=== PATIENT | female | born 1980 | race Caucasian/White ===

== ENCOUNTER 2017-11-02 10:24 | Emergency (ER) | payer OTHER ==
[2017-11-02] MEDS ORDERED: DIPHTH,PERTUSS(ACELL),TET 0.5 ML DISP.SYRIN IM ONE (10:34)
[2017-11-02 10:38] VITALS: TEMP 98.2; BMI 36.3
--- NOTE | 2017-11-02 10:40 | PDOC ---
History of Present Illness - History of Present Illness Initial Comments: 36 year old female with PMH of anemia (q 6 weekly iron infusions) presenting s/ p trauma to left dorsal foot. She opened a cabinet that had a drill in it and fell out of the cabinet striking the top of her 4th left toe. She is unsure if the drill bit portion struck her toe but states that she was struck by the "whole drill". She noticed a cut with bleeding on the top of her foot but was able to move her foot and didn't lose function or sensation. She went to urgent care and they insisted that she come to the ED because of concern regarding the depth of the cut. No material or foreign body in the wound as far as she knows. LMP was three weeks prior. Not on blood thinners or aspirin. Her last tetanus is unknown but she was told she was "up-to-date" at her last physical one year prior. She was ambulatory after the trauma and ambulatory in our ED. Denies any fevers, chills, nausea, vomiting, diarrhea, constipation, or other symptoms. 11/02/17 10:32 <Clem Hoover - Last Filed: 11/02/17 12:01> <Linda Delgado - Last Filed: 11/02/17 21:47> - General Chief Complaint: Injury Stated Complaint: LEFT FOOT INJURY Time Seen by Provider: 11/02/17 10:31 Past History - Past Medical History Anemia: Yes - Suicide/Smoking/Psychosocial Hx Smoking Status: No Smoking History: Never smoked Number of Cigarettes Smoked Daily: 0 <Clem Hoover - Last Filed: 11/02/17 12:01> <Linda Delgado - Last Filed: 11/02/17 21:47> - Past Medical History Allergies/Adverse Reactions: Allergies Allergy/AdvReac Type Severity Reaction Status Date / Time No Known Drug Allergies Allergy Verified 11/02/17 10:27 dust, pollen Allergy Uncoded 11/02/17 11:12 Home Medications: Ambulatory Orders Fexofenadine/Pseudoephedrine [Cici-D 24 Hour Tablet] 1 each PO DAILY Iron Injection WEEKLY 11/02/17 Sulfamethoxazole/Trimethoprim [Bactrim Ds -] 1 tab PO BID 5 Days #10 tablet Review of Systems - Review of Systems Constitutional: No: Chills, Fever HEENTM: No: Blurred Vision Respiratory: No: Cough, Shortness of Breath, Wheezing Cardiac (ROS): No: Chest Pain, Irregular Heart Rate, Chest Tightness ABD/GI: No: Diarrhea, Nausea, Vomiting : No: Burning, Dysuria, Discharge Musculoskeletal: No: Back Pain, Joint Pain, Muscle Weakness Integumentary: No: Bruising, Erythema, Lesions Neurological: No: Numbness, Paresthesia, Weakness <Clem Hoover - Last Filed: 11/02/17 12:01> *Physical Exam - Physical Exam General Appearance: Yes: Nourished, Appropriately Dressed. No: Apparent Distress HEENT: positive: EOMI, MARINA, Normal ENT Inspection, Normal Voice Neck: positive: Trachea midline, Normal Thyroid, Supple. negative: Tender, Rigid Respiratory/Chest: positive: Lungs Clear, Normal Breath Sounds. negative: Chest Tender, Respiratory Distress, Accessory Muscle Use Cardiovascular: positive: Regular Rhythm, Regular Rate Gastrointestinal/Abdominal: positive: Normal Bowel Sounds, Flat, Soft. negative : Tender Musculoskeletal: positive: Other (No obvious defomrity to LLE but there is skin breakage over the dorsal aspect of the 4th metatarsal-tarsal joint). negative: Normal Inspection, Decreased Range of Motion Extremity: positive: Normal Range of Motion, Tender (4th dorsal tarsal- metatarsal tenderenss tp palpation with deep 2.6 cm wound extending into the deep tissue without obvious bone extrudign through. Area distal to the wound is neurovascularly intact and she has full motor strength). negative: Normal Inspection Integumentary: positive: Normal Color, Dry, Warm Neurologic: positive: Fully Oriented, Alert, Normal Mood/Affect, Normal Response , Motor Strength 5/5 <Clem Hoover - Last Filed: 11/02/17 12:01> - Vital Signs Last Vital Signs Temp Pulse Resp BP Pulse Ox 98.2 F 89 16 135/94 99 11/02/17 10:25 11/02/17 11:30 11/02/17 11:30 11/02/17 11:30 11/02/17 11:30 <Linda Delgado - Last Filed: 11/02/17 21:47> Procedures - Laceration/Wound Repair Left Proximal Dorsal Toe 4th digit Wound Explored: clean Wound's Depth, Shape: superficial Irrigated w/ Saline: Yes Betadine Prep: No Anesthesia: 1% Lidocaine Amount of Anesthetic (ccs): 4 Wound Debrided: minimal Wound Repaired With: Sutures Suture Size/Type: 4:0, nylon Number of Sutures: 3 Layer Closure: No Sterile Dressing Applied: Yes Splint Applied: Yes (Walking boot) <Clem Hoover - Last Filed: 11/02/17 12:01> - Laceration/Wound Repair Left Proximal Dorsal Toe 4th digit Wound Length: to 2.5 cm <Linda Delgado S - Last Filed: 11/02/17 21:47> ED Treatment Course - ADDITIONAL ORDERS Additional order review: Laboratory Results 11/02/17 10:40 Urine HCG, Qual Negative - Medications Given in the ED: ED Medications Discontinued Medications Generic Name Dose Route Start Last Admin Trade Name Freq PRN Reason Stop Dose Admin Acetaminophen 1,000 mg 11/02/17 10:45 11/02/17 10:47 Tylenol - PO 11/02/17 10:46 1,000 mg ONCE ONE Administration Diphtheria/Tetanus/Acell Pertussis 0.5 ml 11/02/17 10:34 11/02/17 10:59 Boostrix - IM 11/02/17 10:35 0.5 ml .ONCE ONE Administration Trimethoprim/Sulfamethoxazole 1 each 11/02/17 12:07 11/02/17 12:15 Bactrim Ds - PO 11/02/17 12:08 1 each ONCE ONE Administration <Linda Delgado S - Last Filed: 11/02/17 21:47> Medical Decision Making - Medical Decision Making No fractures on toe films. Sutured with good hemostasis, pain control, and neurovascularly intact with good ROM before and after the procedure. Given tetanus booster, Bactrim (because of area of wound), post op shoe to prevent flexion and suture tension, and sent home with prescription for Bactrim and wound check return 4-5 days with suture removal in two weeks. 11/02/17 12:02 <Clem Hoover - Last Filed: 11/02/17 12:01> *DC/Admit/Observation/Transfer - Discharge Dispostion Admit: No <Clem Hoover - Last Filed: 11/02/17 12:01> <Linda Delgado S - Last Filed: 11/02/17 21:47> Diagnosis at time of Disposition: Laceration of toe of left foot Qualifiers: Encounter type: initial encounter Toe: lesser toe Damage to nail status: without damage Foreign body presence: without foreign body Qualified Code(s): S91.115A - Laceration without foreign body of left lesser toe(s) without damage to nail, initial encounter - Discharge Dispostion Disposition: HOME Condition at time of disposition: Improved - Prescriptions Prescriptions: Sulfamethoxazole/Trimethoprim [Bactrim Ds -] 1 tab PO BID 5 Days #10 tablet - Referrals Referrals: [facility] [Provider Group] - Patient Instructions Printed Discharge Instructions: DI for Suture Removal Additional Instructions: Do not wash the area for the first 24 hours then you can use warm soap and water after that. Please do not soak your wound or expose it to water for extended periods of time. Please wear sandals in the shower to elevate it off of the surface of the shower to keep it clean. Please wear the walking boot for the next week or so until it completely heals. Please return to the ED in 4-5 days for a wound check. The sutures can be removed after 14 days. Please return to the ED sooner if you have fevers, swelling of that tow, redness of the toe, loss of sensation or function of the toe, or if you notice fluid draining from the toe.
[2017-11-02] MEDS ORDERED: ACETAMINOPHEN 500 MG TABLET (FP) ONE (10:45)
[2017-11-02] MEDS ORDERED: ACETAMINOPHEN 500 MG TABLET (FP) PO ONE (10:45)
[2017-11-02 11:31] VITALS: BP 135/94; PULSE 89
[2017-11-02] MEDS ORDERED: SULFAMETHOXAZOLE/TRIMETHOPRIM 800MG/160MG D.S. TABLET PO ONE (12:07)
[2017-11-02] MEDS ORDERED: SULFAMETHOXAZOLE/TRIMETHOPRIM 800MG/160MG D.S. TABLET ONE (12:11)
== END 2017-11-02 12:20 | disposition home or self-care (01) ==
LOC: FER 10:24
PROC: 0HQNXZZ Repair Left Foot Skin, External Approach (ICD-10-PCS; principal; 2017-11-02)
DX: S91.115A Laceration without foreign body of left lesser toe(s) without damage to nail, initial encounter (principal); W20.8XXA Other cause of strike by thrown, projected or falling object, initial encounter; Y93.89 Activity, other specified; Y92.9 Unspecified place or not applicable
CPT/HCPCS: 73660-TC-FY; 84703; 90715; 99283-25

== ENCOUNTER 2021-07-23 14:46 | Observation (INO) | payer OTHER ==
[2021-07-23] MEDS ORDERED: METOCLOPRAMIDE HCL INJECTION 10 MG/2 ML VIAL IVPB ONE (17:01)
[2021-07-23] MEDS ORDERED: ACETAMINOPHEN 1000 MG/100 ML BAG IVPB ONE (17:01)
[2021-07-23] MEDS ORDERED: ACETAMINOPHEN INJECTION 100 ML IVPB ONE (17:43)
[2021-07-23] MEDS ORDERED: METOCLOPRAMIDE HCL INJECTION 10 MG/2 ML VIAL ONE (17:53)
[2021-07-23] MEDS ORDERED: SODIUM CHLORIDE 0.9% 500 ML INFUS.BAG IV ONE (18:20)
[2021-07-23 18:48] LABS: BASO % 1.4 % (0-2.0); EOS % 5.5 % (0-4.5); HEMATOCRIT 23.3 % (32.4-45.2); MEAN PLT VOLUME 8.7 fl (7.5-11.1); MONO % 4.8 % (3.8-10.2); NEUT % 61.3 % (42.8-82.8); PLATELET COUNT 418 10^3/uL (134-434); RBC 4.24 M/mm3 (3.60-5.2); RDW 19.7 % (11.6-15.6); WHITE BLOOD COUNT 6.2 K/mm3 (4.0-10.0)
[2021-07-23 18:55] LABS: MCH 15.4 pg (25.7-33.7)
[2021-07-23 18:56] LABS: HEMOGLOBIN 6.5 GM/dL (10.7-15.3)
[2021-07-23 19:12] LABS: CHLORIDE 114 mmol/L (98-107); SODIUM 144 mmol/L (136-145)
[2021-07-23 19:14] LABS: ALBUMIN 3.4 g/dl (3.4-5.0); ANION GAP 5 MMOL/L (8-16); BLOOD UREA NITROGEN 7.6 mg/dL (7-18); CALCIUM 8.1 mg/dL (8.5-10.1); CO2 26 mmol/L (21-32); GLUCOSE,RANDOM 78 mg/dL (74-106)
[2021-07-23 19:17] LABS: CREATININE 0.4 mg/dL (0.55-1.3); SGOT/AST 13 U/L (15-37); SGPT/ALT 15 U/L (13-61)
[2021-07-23 19:19] LABS: BILIRUBIN,TOTAL 0.3 mg/dL (0.2-1); TOT PROT 6.6 g/dl (6.4-8.2)
[2021-07-23 19:20] LABS: ALK PHOS 80 U/L (45-117)
[2021-07-23] MEDS ORDERED: ACETAMINOPHEN 325 MG TABLET (FP) PO PRN (21:42)
[2021-07-24 02:12] LABS: RETICULOCYTES 1.38 % (0.5-1.5)
[2021-07-24] MEDS ORDERED: ACETAMINOPHEN 325 MG TABLET (FP) ONE (03:32)
[2021-07-24 08:41] LABS: HEMATOCRIT 23.9 % (32.4-45.2); MCHC 28.7 g/dl (32.0-36.0); MEAN CELL VOLUME 58.8 fl (80-96); MEAN PLT VOLUME 8.6 fl (7.5-11.1); PLATELET COUNT 402 10^3/uL (134-434); RBC 4.06 M/mm3 (3.60-5.2); RDW 22.2 % (11.6-15.6); WHITE BLOOD COUNT 4.5 K/mm3 (4.0-10.0)
[2021-07-24 08:44] LABS: MCH 16.9 pg (25.7-33.7)
[2021-07-24 08:53] LABS: HEMOGLOBIN 6.9 GM/dL (10.7-15.3)
[2021-07-24 08:54] LABS: BLOOD UREA NITROGEN 5.6 mg/dL (7-18); CALCIUM 8.2 mg/dL (8.5-10.1)
[2021-07-24 08:57] LABS: MAGNESIUM 2.3 mg/dL (1.8-2.4); PHOSPHOROUS 3.7 mg/dL (2.5-4.9)
[2021-07-24 08:58] LABS: CREATININE 0.5 mg/dL (0.55-1.3)
[2021-07-24 11:49] LABS: RETICULOCYTES 1.44 % (0.5-1.5)
[2021-07-24 15:34] LABS: IRON SERUM 10 ug/dL (50-175)
[2021-07-24] MEDS ORDERED: ACETAMINOPHEN 1000 MG/100 ML BAG IVPB ONE (23:35)
[2021-07-24] MEDS ORDERED: ACETAMINOPHEN INJECTION 100 ML IVPB ONE (23:37)
[2021-07-25 04:08] VITALS: BMI 33.2
[2021-07-25 08:08] LABS: BASO % 1.5 % (0-2.0); EOS % 7.6 % (0-4.5); HEMATOCRIT 26.1 % (32.4-45.2); HEMOGLOBIN 7.9 GM/dL (10.7-15.3); LYMPH % 28.9 % (8-40); MCHC 30.4 g/dl (32.0-36.0); MEAN CELL VOLUME 61.7 fl (80-96); MEAN PLT VOLUME 8.8 fl (7.5-11.1); MONO % 5.4 % (3.8-10.2); NEUT % 56.6 % (42.8-82.8); PLATELET COUNT 409 10^3/uL (134-434); RBC 4.22 M/mm3 (3.60-5.2); RDW 28.6 % (11.6-15.6); WHITE BLOOD COUNT 6.2 K/mm3 (4.0-10.0)
[2021-07-25 08:10] LABS: MCH 18.7 pg (25.7-33.7)
[2021-07-25 08:45] LABS: CALCIUM 8.4 mg/dL (8.5-10.1)
[2021-07-25 08:46] LABS: ALBUMIN 3.2 g/dl (3.4-5.0); BLOOD UREA NITROGEN 7.7 mg/dL (7-18)
[2021-07-25 08:49] LABS: CREATININE 0.4 mg/dL (0.55-1.3)
[2021-07-25 08:51] LABS: BILIRUBIN,TOTAL 0.8 mg/dL (0.2-1); TOT PROT 6.6 g/dl (6.4-8.2)
[2021-07-25 14:48] VITALS: BP 133/89; PULSE 71; TEMP 98.8
== END 2021-07-25 14:51 | disposition home or self-care (01) ==
LOC: JER 14:46 → JERBED 19:26 → J7W 07-25 03:51
PROVIDERS: ADMIT Internal Medicine
PROC: 30233N1 Transfusion of Nonautologous Red Blood Cells into Peripheral Vein, Percutaneous Approach (ICD-10-PCS; principal; 2021-07-23)
PROC: 3E033GC Introduction of Other Therapeutic Substance into Peripheral Vein, Percutaneous Approach (ICD-10-PCS; 2021-07-23)
DX: D50.9 Iron deficiency anemia, unspecified (principal); R53.1 Weakness; R51.9 Headache, unspecified; N92.0 Excessive and frequent menstruation with regular cycle; D25.9 Leiomyoma of uterus, unspecified; E66.9 Obesity, unspecified; Z68.33 Body mass index [BMI] 33.0-33.9, adult
CPT/HCPCS: 36415; 36430; 36511; 70450-TC; 71046-TC-FY; 76856-TC; 80048; 80053; 82728; 83036; 83540; 83550; 83735; 84100; 84702; 85025; 85027; 85045; 86850; 86900; 86901; 86922; 87804; 93005; 93010; 99285-25; C9803; G0378; J0131; P9038; P9058; U0003; U0005